=== PATIENT | female | born 1990 | race Caucasian/White ===

== ENCOUNTER 2016-12-10 19:45 | Emergency (ER) | payer MEDICAID, OTHER ==
[~2016-12-10] VITALS: Ht 157.5 cm; Wt 57.5 kg
[~2016-12-10 19:45] MED LIST: PREN1TAB49 PO
[2016-12-10 19:52] VITALS: Ht 157.5 cm; Wt 57.5 kg
--- NOTE | 2016-12-10 21:12 | ERD ---
ER Documentation Chief Complaint Date/Time DATE: 12/10/16 TIME: 20:45 Chief Complaint pelvic pain/lower back pain x 3 days HPI 26-year-old female who presents to the emergency department for pelvic pain, suprapubic pain, lower back pain for 3 days. Also complains of dysuria. LMP: Stated that it was a week ago. A1. Denies headache, dizziness, blurred vision, neck pain, shoulder pain, chest pain , back pain, nausea, vomiting, , possibility of being , vaginal bleeding, hematuria, recent travel, recent exposure to any illness, trauma, injury, falls, fever, chills. No known drug allergies. No past medical history. Surgical history of C- section 3. Does not work at this time. Denies smoking, use of alcohol, use of illegal drugs. ROS All systems reviewed and are negative except as per history of present illness. Medications Home Meds Active Scripts Cephalexin* (Keflex*) 500 Mg Capsule, 500 MG PO QID for 5 Days, CAP Prov:PASILABAN,KLAR F 12/10/16 Ibuprofen* (Motrin*) 600 Mg Tab, 600 MG PO Q8, #30 TAB Prov:PASILABAN,KLAR F 12/10/16 Reported Medications Vits W-Ca,Fe,Fa(<1MG) () 1 Tab Tablet, 1 TAB PO DAILY 01/23/12 [None] No Conflict Check 08/23/10 Allergies Allergies: Coded Allergies: No Known Allergy (Verified , 12/10/16) PMhx/Soc History of Surgery: No Anesthesia Reaction: No Hx Neurological Disorder: No Hx Respiratory Disorders: No Hx Cardiac Disorders: No Hx Psychiatric Problems: No Hx Miscellaneous Medical Probl: No Hx Alcohol Use: Yes (SOCIALLY) Hx Substance Use: No Hx Tobacco Use: Yes (OCCASIONAL ) Smoking Status: Smoker,current status unk Physical Exam Vitals Vital Signs Date Time Temp Pulse Resp B/P Pulse Ox O2 Delivery O2 Flow Rate FiO2 12/10/16 19:52 98.2 96 20 124/71 98 Physical Exam Const: [] Head: Atraumatic Eyes: Normal. ENT: Normal External Ears, Nose and Mouth. Neck: Full range of motion..~ No meningismus. Resp: Clear to auscultation bilaterally Cardio: Regular rate and rhythm, no murmurs Abd: Soft, non tender, non distended. Normal bowel sounds. Suprapubic tenderness. There is no CVA tenderness. Active bowel sounds. There is no right upper/right lower/epigastric/left upper/left lower abdominal tenderness and likely palpation. Negative on Rovsing sign. Negative David sign. Negative and psoas sign. Able to jump 10 times without developing lower abdominal pain. No peritoneal signs. Skin: No petechiae or rashes Back: No midline or flank tenderness Ext: No cyanosis, or edema Neur: Awake and alert Psych: Normal Mood and Affect Result Diagram: 12/10/16219912/10/162199 Results 24 hrs Laboratory Tests Test 12/10/16 21:00 12/10/16 22:00 Urine Color YELLOW Urine Clarity CLOUDY Urine pH 7.0 Urine Specific Darden 1.012 Urine Ketones NEGATIVEmg/dL Urine Nitrite NEGATIVEmg/dL Urine Bilirubin NEGATIVEmg/dL Urine Urobilinogen NEGATIVEmg/dL Urine Leukocyte Esterase 3+Eliud/ul Urine Microscopic RBC 76/HPF Urine Microscopic WBC > 182/HPF Urine Bacteria FEW/HPF Urine Hemoglobin 2+mg/dL Urine Glucose NEGATIVEmg/dL Urine Total Protein 3+mg/dl White Blood Count 9.610^3/ul Red Blood Count 3.9210^6/ul Hemoglobin 12.1g/dl Hematocrit 35.6% Mean Corpuscular Volume 90.8fl Mean Corpuscular Hemoglobin 30.9pg Mean Corpuscular Hemoglobin Concent 34.0g/dl Red Cell Distribution Width 11.9% Platelet Count 34431^3/UL Mean Platelet Volume 10.6fl Neutrophils % 76.5% Lymphocytes % 14.8% Monocytes % 7.1% Eosinophils % 1.0% Basophils % 0.3% Nucleated Red Blood Cells % 0.0/100WBC Neutrophils # 7.310^3/ul Lymphocytes # 1.410^3/ul Monocytes # 0.710^3/ul Eosinophils # 0.110^3/ul Basophils # 0.010^3/ul Nucleated Red Blood Cells # 0.010^3/ul Prothrombin Time 12.1Sec Prothrombin Time Ratio 0.9 INR International Normalized Ratio 0.90 Activated Partial Thromboplast Time 29.2Sec Sodium Level 138mmol/L Potassium Level 4.0mmol/L Chloride Level 107mmol/L Carbon Dioxide Level 24mmol/L Anion Gap 11 Blood Urea Nitrogen 13mg/dl Creatinine 0.74mg/dl Glucose Level 89mg/dl Calcium Level 9.0mg/dl Total Bilirubin 2.3mg/dl Direct Bilirubin 0.00mg/dl Indirect Bilirubin 2.3mg/dl Aspartate Amino Transf (AST/SGOT) 22IU/L Alanine Aminotransferase (ALT/SGPT) 33IU/L Alkaline Phosphatase 87IU/L Total Protein 7.7g/dl Albumin 4.1g/dl Globulin 3.60g/dl Albumin/Globulin Ratio 1.13 Amylase Level 99U/L Lipase 62U/L Current Medications Medications (Trade) Dose Ordered Sig/Samy Route PRN Reason Start Time Stop Time Status Last Admin Dose Admin Ketorolac Tromethamine (Toradol) 60 mg ONCE STAT IM 12/10/16 21:18 12/10/16 21:19 DC 12/10/16 21:41 Procedures/MDM 26-year-old female who presents to the emergency department for pelvic pain, suprapubic pain, lower back pain for 3 days. Also complains of dysuria. LMP: Stated that it was a week ago. A1. Denies headache, dizziness, blurred vision, neck pain, shoulder pain, chest pain , back pain, nausea, vomiting, , possibility of being , vaginal bleeding, hematuria, recent travel, recent exposure to any illness, trauma, injury, falls, fever, chills. No known drug allergies. No past medical history. Surgical history of C- section 3. Does not work at this time. Denies smoking, use of alcohol, use of illegal drugs. Physical exam: Suprapubic tenderness. There is no CVA tenderness. Active bowel sounds. There is no right upper/right lower/epigastric/left upper/left lower abdominal tenderness and likely palpation. Negative on Rovsing sign. Negative David sign. Negative and psoas sign. Able to jump 10 times without developing lower abdominal pain. No peritoneal signs. Disease process was explained to the patient family member. They both verbalized understanding and agreed with the diagnostic test, treatment, plan of care. POC urine : Negative. Urinalysis: UTI. Blood works: Reviewed. Abdominal ultrasound (right upper quadrant): No gallstones. Pancreas not visualized. Nonobstructing 0.3 cm calculus in the lower right kidney. Otherwise normal right upper quadrant abdominal ultrasound. Treatment: Toradol IM. Reevaluation: Denies headache, dizziness, blurred vision, neck pain, shoulder pain, chest pain, back pain, abdominal pain, nausea, vomiting. No episode of emesis in the emergency department. Active bowel sounds. There is no right upper/right lower/epigastric/left upper/lower abdominal tenderness and likely palpation. Negative on Rovsing sign. Negative David sign. Negative and psoas sign. Able to jump 10 times without developing abdominal pain. Ambulatory with steady gait and without pain. No CVA tenderness. Stated that she feels much better and is ready to go home. Differential diagnosis: Appendicitis versus cholecystitis versus pancreatitis versus diverticulitis versus nephrolithiasis versus pyelonephritis versus urinary tract infection versus muscle spasms versus sciatica Final diagnosis: Urinary tract infection, abdominal pain Prescription: Keflex. Motrin. Follow-up with primary care physician the next 24-48 hours. Come back to emergency department for any new symptoms or any worsening symptoms. All questions and concerns are answered. Patient verbalized understanding and agreed with the plan of care. Hemodynamically stable on discharge. Departure Diagnosis: Primary Impression: Urinary tract infection Additional Impression: Abdominal pain Condition: Stable Additional Instructions: Follow-up with primary care physician the next 24-48 hours. Come back to emergency department for any new symptoms or any worsening symptoms. All questions and concerns are answered. Patient verbalized understanding and agreed with the plan of care. ANA MARIA MCKEON Dec 10, 2016 21:12
[2016-12-10] MEDS ORDERED: KETOROLAC 60 MG INJ IM STA (21:18)
[2016-12-10 21:29] LABS: ADD UMIC YES; UR ASCORBIC ACID NEGATIVE (NEGATIVE); UR BACTERIA FEW /HPF (NONE SEEN); UR BILIRUBIN (Dip) NEGATIVE (NEGATIVE); UR BLOOD (Dip) 2+ mg/dL (NEGATIVE); UR CLARITY CLOUDY (CLEAR); UR COLOR YELLOW (YELLOW); UR GLUCOSE (Dip) NEGATIVE (NEGATIVE); UR KETONES (Dip) NEGATIVE (NEGATIVE); UR LEUKOCYTE ESTERASE (Dip) 3+ Leu/ul (NEGATIVE); UR NITRITE (Dip) NEGATIVE (NEGATIVE); UR RBC 76 /HPF (0-5); UR SPECIFIC GRAVITY (Dip) 1.012 (1.003-1.030); UR TOTAL PROTEIN (Dip) 3+ mg/dl (NEGATIVE); UR UROBILINOGEN (Dip) NEGATIVE (NEGATIVE)
[2016-12-10 22:21] LABS: BASOPHILS % 0.3 % (0.0-2.0); EOSINOPHILS # 0.1 10^3/ul (0.0-0.5); HEMATOCRIT 35.6 % (37.0-47.0); HEMOGLOBIN 12.1 g/dl (12.0-16.0); LYMPHOCYTES # 1.4 10^3/ul (0.8-2.9); LYMPHOCYTES % 14.8 % (15.0-51.0); MEAN CORPUSCULAR HEMOGLOBIN 30.9 pg (29.0-33.0); MEAN CORPUSCULAR VOLUME 90.8 fl (82.0-101.0); MEAN PLATELET VOLUME 10.6 fl (7.4-10.4); MONOCYTE # 0.7 10^3/ul (0.3-0.9); MONOCYTES % 7.1 % (0.0-11.0); NEUTROPHIL # 7.3 10^3/ul (1.6-7.5); NEUTROPHILS % 76.5 % (39.0-77.0); PLATELET COUNT 256 10^3/UL (140-415); RED BLOOD COUNT 3.92 10^6/ul (4.20-5.40); RED CELL DISTRIBUTION WIDTH 11.9 % (11.5-14.5); WHITE BLOOD COUNT 9.6 10^3/ul (4.8-10.8)
[2016-12-10 22:33] LABS: INR 0.9; PROTIME 12.1 Sec (12.2-14.2); PT RATIO 0.9
[2016-12-10 22:34] LABS: PARTIAL THROMBOPLASTIN TIME 29.2 Sec (25.0-35.0)
[2016-12-10 22:39] LABS: ALBUMIN 4.1 g/dl (3.3-4.9); ALBUMIN/GLOBULIN RATIO 1.13; BILIRUBIN,INDIRECT 2.3 mg/dl (0-1.1); BILIRUBIN,TOTAL 2.3 mg/dl (0.2-1.3); CREATININE 0.74 mg/dl (0.44-1.00); TOTAL PROTEIN 7.7 g/dl (6.1-8.1)
--- NOTE | 2016-12-10 22:51 | RADRPT ---
PROCEDURE: US Abdomen (right upper quadrant). CLINICAL INDICATION: Right upper quadrant abdomen pain. TECHNIQUE: Multiple real-time longitudinal and transverse images of the right upper quadrant of th e abdomen were acquired utilizing a curved array transducer. Images were reviewed on a high-resoluti on PACS workstation. COMPARISON: None FINDINGS: The liver is normal in size and normal in echogenicity. There is no focal hepatic lesion. The gallbladder is normal with no stones or wall thickening. There is no pericholecystic fluid yanira ection. The bile ducts are normal with the common bile duct measuring 1.8 mm in diameter. The pancreas is not visualized due to overlying bowel gas. No free fluid is present. The right kidney measures 9.6 cm. There is normal echogenicity of the right kidney. There is no r ight renal mass or hydronephrosis. There is a small calculus in the lower pole of the right kidney m easuring 0.3 cm. IMPRESSION: 1. No gallstones. 2. Pancreas not visualized. 3. Nonobstructing 0.3 cm calculus in the lower right kidney. 4. Otherwise normal right upper quadrant abdomen ultrasound. RPTAT: QQ .Jose R Reyes MD, MD Date Time Electronically viewed and signed by .Jose R Reyes MD, on 12/10/2016 22:51 .R/
[2016-12-10] MEDS ORDERED: IBUP-1542 PO (23:14)
[2016-12-10] MEDS ORDERED: CEPH-443 PO (23:15)
[2016-12-10 23:27] VITALS: BP 117/62; PULSE 82; RESP 15; TEMP 98.9
== END 2016-12-10 23:28 | disposition home or self-care (01) ==
LOC: FTE 19:45
DX: N39.0 Urinary tract infection, site not specified (principal); R10.9 Unspecified abdominal pain; F17.210 Nicotine dependence, cigarettes, uncomplicated
CPT/HCPCS: 36415; 76705; 80053; 81001; 82150; 83690; 85025; 85610; 85730; 96372; J1885; Z7502